=== PATIENT | male | born 1965 | race Caucasian/White ===

== ENCOUNTER 2018-05-02 05:48 | Day surgery (SDC) | payer BC, OTHER ==
[2018-04-25 13:57] VITALS: BMI 26.3
[2018-05-02] MEDS ORDERED: PROPOFOL 20 ML ONE ×2 (07:06)
[2018-05-02] MEDS ORDERED: MIDAZOLAM HCL 2 MG/2 ML SINGLE DOSE VIAL ONE (07:06)
[2018-05-02] MEDS ORDERED: ONDANSETRON 4 MG/2 ML VIAL ONE (07:07)
[2018-05-02] MEDS ORDERED: LIDOCAINE HCL 2% JELLY (5 ML/TUBE) ONE (07:07)
[2018-05-02] MEDS ORDERED: KETOROLAC TROMETHAMINE 30 MG/1 ML VIAL ONE (07:07)
[2018-05-02] MEDS ORDERED: LIDOCAINE HCL/PF 2% SDV 5ML VIAL ONE (07:07)
[2018-05-02] MEDS ORDERED: ceFAZolin SODIUM 1 GM VIAL ONE (07:07)
[2018-05-02] MEDS ORDERED: DEXAMETHASONE SOD PHOSPHATE 4 MG/1 ML VIAL ONE (07:07)
[2018-05-02] MEDS ORDERED: SUCCINYLCHOLINE CHLORIDE 200 MG/10 ML VIAL ONE (07:08)
[2018-05-02] MEDS ORDERED: BUPIVACAINE HCL/PF 2.5 MG/ML - 30 ML VIAL IJ ONE (07:09)
[2018-05-02] MEDS ORDERED: EPINEPHrine 1:1,000 1 MG/1 ML - 30ML VIAL (INJECTION) ONE (07:13)
[2018-05-02] MEDS ORDERED: BUPIVACAINE HCL/PF 0.25% (2.5MG/ML) 10 ML VIAL IJ ONE (08:20)
[2018-05-02] MEDS ORDERED: ONDANSETRON 4 MG/2 ML VIAL IVPUSH PRN (09:17)
[2018-05-02] MEDS ORDERED: oxyCODONE HCL 5 MG TABLET PO PRN ×2 (09:17)
[2018-05-02] MEDS ORDERED: LACTATED RINGERS SOLUTION 1,000 ML IV SCH (09:30)
[2018-05-02 10:20] VITALS: BP 124/75; PULSE 75; TEMP 97.9
--- NOTE | 2018-05-02 11:38 | OP ---
DATE OF OPERATION: 05/02/2018 SURGEON: Leo Carrasco MD POLYSOMNOGRAPHIC TECHNICIAN: SOCO Arriaza PREOPERATIVE DIAGNOSES: 1. Right knee medial and lateral meniscal tear. 2. Right knee cartilage tear. 3. Right knee synovitis. POSTOPERATIVE DIAGNOSES: 1. Right knee medial and lateral meniscal tear. 2. Right knee cartilage tear. 3. Right knee synovitis. PROCEDURE: 1. Right knee arthroscopy with partial meniscectomy, medial and lateral meniscus (CPT code 61176). 2. Right knee arthroscopy with chondroplasty (CPT code 81675). 3. Right knee arthroscopy with synovectomy including removal of medial plica (CPT code 45940). FINDINGS: 1. Medial meniscus central body tear - minor. 2. Lateral meniscus anterior horn tear - minor. 3. Synovitis patellofemoral medial and lateral notch area most predominantly anteriorly. 4. Central medial with adjacent to the notch medial femoral condyle 6 x 4-cm osteochondral defect and lesion, loose. 5. Central anterior grade 2 to 3 cartilage injury, medial femoral condyle. 6. ACL and PCL intact. 7. Minimal cartilage change in lateral joint line. 8. Anterior grade 2 cartilage injury, patella and the patellofemoral trochlea. PROCEDURE: Informed consent was obtained. The patient came to the operating room, where the lower extremity was prepped and draped in a sterile fashion. A tourniquet was placed on the upper thigh but not inflated. Using standard arthroscopic technique, a lateral incision and portal was made to allow for introduction of the camera into the suprapatellar bursa. This was then taken to the medial joint line, where under direct visualization a medial incision and portal was made. Excessive synovium noted in the medial, lateral and patellofemoral and notch area was removed by an up-biter, shaver and Bovie cautery. This was found to bring in inflammatory tissue into the joint surface, a source of pain and dysfunction. Probing of the medial and lateral meniscus found tears, as described in the findings. These were removed with the up-biter and shaver and taken back to a stable rim. Grade 2 to 3 degenerative changes were treated with a chondroplasty, removing all flaking surfaces with low-setting Bovie along the periphery to prevent further flaking. Grade 4 changes, as noted, were treated with an abrasoplasty, creating a bleeding surface at the bone/cartilage interface. Aggressive debridement with shaver/bur created bleeding surface. Micro fracture also done when indicated in findings. All areas of the knee were once again reexamined. The knee was then drained and a single suture was placed in all portals. A sterile dressing was placed and the patient was transferred to the recovery room without complication. The PA listed above was present and assisted at surgery. Their presence was absolutely medically necessary for the completion of the procedure. They helped hold the arthroscopy, pass instruments (and implants when indicated) and the procedure could not have been completed without their assistance. ADDENDUM: Greatest loose lesion was the portion of the medial femoral condyle adjacent to the notch. This had a large flap which was catching. The remnants were removed, shaved down with a chondroplasty to prevent further debridement and a low-setting Bovie used along the periphery. LEO BURT M.D. [id number]
--- NOTE | 2018-05-07 14:44 | PATH ---
Surgical Pathology Report Patient Name: LEO PACHECO [facility]. Rec. #: [id number] /Age/Gender: 1965 (Age: 52) / M Account: [id number] Location: [facility] AMBULATORY Taken: 05/02/2018 Received: 05/02/2018 Reported: 05/07/2018 Physicians: Leo Han M.D. Specimen(s) Received RIGHT KNEE SHAVINGS Clinical History Right knee, internal derangement Final Diagnosis KNEE, RIGHT, ARTHROSCOPIC SHAVINGS: FIBROSYNOVIAL TISSUE AND CARTILAGE. Electronically Signed Madiha Rosales M.D. Gross Description Received in formalin, labeled "right knee shavings" is 1.8 x 1.3 x 0.3 cm aggregate of white, soft to fibrous tissue. Housekeeper tissue is submitted in one cassette. AE/05/05/2018 ebram/05/05/2018
== END 2018-05-02 10:22 | disposition home or self-care (01) ==
LOC: FASU 05:48
PROVIDERS: ATTEND Orthopaedic Surgery
PROC: 0SBC4ZZ Excision of Right Knee Joint, Percutaneous Endoscopic Approach (ICD-10-PCS; 2018-05-02)
PROC: 0SBC4ZZ Excision of Right Knee Joint, Percutaneous Endoscopic Approach (ICD-10-PCS; 2018-05-02)
PROC: 0SBC4ZZ Excision of Right Knee Joint, Percutaneous Endoscopic Approach (ICD-10-PCS; principal; 2018-05-02 08:11)
DX: S83.241A Other tear of medial meniscus, current injury, right knee, initial encounter (principal); S83.281A Other tear of lateral meniscus, current injury, right knee, initial encounter; S83.8X1A Sprain of other specified parts of right knee, initial encounter; M65.861 Other synovitis and tenosynovitis, right lower leg; X58.XXXA Exposure to other specified factors, initial encounter; Y93.9 Activity, unspecified; Y92.9 Unspecified place or not applicable
CPT/HCPCS: 88304-TC; 94760